=== PATIENT | female | born 1975 | race Two or more races ===

== ENCOUNTER 2023-08-07 10:21 | Outpatient (CLI) | payer MEDICAID ==
--- NOTE | 2023-08-07 11:22 | Sleep Patient Instructions ---
Sleep Center Visit Summary - Patient Visit Information Reason for Visit: Initial consult for evaluation of sleep disordered breathing and other sleep issues. - Patient Instructions Instructions Attached: Sleep Study, Sleep Study Home Monitor Additional Instructions: You will be completing a sleep study, either an in-lab polysomnography (PSG) or home sleep study (HST). You will follow-up in the sleep care office after the sleep study is completed to hear the results and talk about therapy, if needed. You will be called by our office staff to schedule this appointment, but you may contact us with any questions. - Clinic Information Contact: [facility] [address] [place] [id number] [email or web address] T: [phone]
--- NOTE | 2023-08-07 11:29 | SLEEP CARE CONSULTATION ---
Information from patient questionnaire entered by Clarissa Baxter. I have reviewed and concur with the information entered by Clarissa Baxter. This document represents the service I personally performed and the decisions made by me, Sherry Parra ARNP. History of Present Illness Service Date and Time: 08/07/2023 1021 Reason for Visit: New patient Chief Complaint: reports: Snoring, Observed pauses in breathing Date of Onset: 8+YRS Usual bedtime: 2300 Time it takes to fall asleep: MINS Snores at night: Yes Observed to quit breathing while asleep: Yes Sleeps alone due to snoring: No Number of times waking at night: 0 Reasons for waking at night: denies: Choking, Snoring, Gasping for air Toss, Turn, or Twitch while sleeping: Yes Recalls having dreams: No Usually gets out of bed at: 0700 Feels refreshed in the morning: No Morning headache: No Sleepy or fatigued during the day: Yes Ever fallen asleep while driving: No Takes day naps: No Prior sleep studies: No Additional HPI information: I had the pleasure of seeing BRANDON KOCH today regarding the possibility of her having a sleep disorder. Her current complaints are snoring and observed pauses in breathing. She said she did have a sleep study in [place] 2 years ago but never got results of that study. She feels like her brain is fuzzy all the time and she has a hard time retaining information. She does not wake up feeling rested in the morning. She usually does not take naps. - Parasomnia Symptoms Ever been unable to move upon waking from sleep: No Walks in sleep: No Talks in sleep: Yes (telling stories) Ever acted out dreams in sleep: No Ever felt weak in the knees when startled or emotional: Yes (has not fallen to ground) Bothered by creepy, crawly, restless sensations in legs: No Problems with memory or concentration: Yes (both) Subjective Initial [place] Sleepiness Scale score: 15 (07/16/23) Past Medical History Past Medical History: reports: Other (no significant medical history) Social History The patient's occupation is a [employer]. Patient is and lives in . Have you smoked in the past 12 months: No Alcohol use: No Caffeine use: Yes Caffeine amount and frequency: LARGE DIET COKE MORNINGS Family History Family history of sleep disordered breathing: No (UNKNOWN) Allergies and Home Medications Known drug allergies: No Drug allergies reviewed: Yes Home medication list reviewed: Yes (last OTC vitamins 2 weeks ago) Allergy and home medication list: Allergies No Known Drug Allergies Allergy (Verified 08/07/23 10:43) Home Medications No Known Home Medications 08/07/23 [History] Review of Systems Weight gain over past 5 years: 30 Weight loss over past 5 years: 30 Cardiovascular: denies: high blood pressure Gastrointestinal: denies: heartburn Neurological: denies: headaches Psychiatric: denies: anxiety, depression Ear/Nose/Throat: denies: tonsillectomy Endocrine: denies: thyroid disease Immunologic: denies: allergies to food or environment Physical Exam Vital signs obtained and entered by: CLARISSA Juarez MA Blood Pressure: 120/77 (LEFT ARM) Cuff size: regular Heart Rate: 74 O2 Saturation: 97 Height: 5 ft 5 in Weight: 204 lb 3.2 oz Body Mass Index: 34.0 BMI Classification: Obese Neck circumference: 14.5 Mouth and throat: narrow oropharynx Soft palate: long Hard palate: normal Uvula: normal Uvula visualization: 25% Mallampati Class III Tongue: normal in size Tonsils: 3+/kissing Neck: normal w/o lymphadenopathy or thyromegaly Heart: regular rate and rhythm Lungs: clear bilaterally Impression and Plan 1. Suspected Obstructive Sleep Apnea-Hypopnea Syndrome, as suggested by a history of loud and irregular snoring, observed cessation of breath while asleep, unrefreshed sleep, and excessive daytime sleepiness. Narrow oropharynx and obesity are common predisposing factors for obstructive sleep apnea-hypopnea syndrome. I recommend proceeding to polysomnography to confirm the diagnosis and to assess severity. If the patient has significant sleep disordered breathing, a manual CPAP titration study will also be performed to find the optimal treatment pressure. I informed the patient of what the sleep studies involve and after some discussion, obtained agreement to proceed. The pathophysiology of obstructive sleep apnea-hypopnea syndrome was discussed with the patient and health risks of cardiovascular and cerebrovascular disease if not treated. 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 Patient agreed to plan. * Schedule polysomnography. * Avoid long distance driving or driving when feeling sleepy. * Avoid alcohol, sedative and muscle relaxant around bedtime. * Attempt to lose weight. * Review instructions provided by trained office staff on how to prepare for the sleep study. * Return for follow-up after sleep study completed. Counseling Topics: Weight loss health impact Plan: PSG/HST and followup Visit Type: In Office Time Spent with Patient (minutes): 30 Provider Statement: I spent 100% of the Face to Face Visit with the patient with greater than 50% spent counseling the patient and coordination of care.
[2023-08-07 11:37] VITALS: BP 120/77; O2SAT 97
== END 2023-08-07 10:22 | disposition home or self-care (01) ==
LOC: SC 10:21
PROVIDERS: ATTEND Nurse Practitioner Family
DX: G47.10 Hypersomnia, unspecified (principal); R06.81 Apnea, not elsewhere classified; R06.83 Snoring; G47.8 Other sleep disorders; E66.9 Obesity, unspecified; Z68.34 Body mass index [BMI] 34.0-34.9, adult
CPT/HCPCS: 99203; 99212

== ENCOUNTER 2023-08-07 11:34 | Outpatient (CLI) | payer MEDICAID ==
[2023-08-07 17:50] LABS: BASOPHILS # (AUTO) 0.1 10^3/uL (0.0-0.1); EOSINOPHILS # (AUTO) 0.1 10^3/uL (0.0-0.7); EOSINOPHILS % (AUTO) 1.7 %; HCT - HEMATOCRIT 43.7 % (37.0-47.0); HGB - HEMOGLOBIN 13.5 g/dL (12.0-16.0); LYMPHOCYTES # (AUTO) 2.3 10^3/uL (1.5-3.5); LYMPHOCYTES % (AUTO) 45.2 %; MEAN CORPUSCULAR HEMOGLOBIN 29.2 pg (27.0-31.0); MEAN CORPUSCULAR HGB CONC 30.9 g/dL (32.0-36.0); MEAN CORPUSCULAR VOLUME 94.6 fL (81.0-99.0); MEAN PLATELET VOLUME 11.2 fL (7.9-10.8); MONOCYTES # (AUTO) 0.3 10^3/uL (0.0-1.0); MONOCYTES % (AUTO) 6.6 %; NEUTROPHILS # (AUTO) 2.3 10^3/uL (1.5-6.6); NEUTROPHILS % (AUTO) 45.3 %; PLT - PLATELET COUNT 273 10^3/uL (130-450); RED BLOOD COUNT 4.62 10^6/uL (4.20-5.40); RED CELL DISTRIBUTION WIDTH 12.4 % (12.0-15.0); WHITE BLOOD COUNT 5.2 x10^3/uL (4.8-10.8)
[2023-08-07 18:13] LABS: ALBUMIN 4.6 g/dL (3.2-5.5); ALBUMIN/GLOBULIN RATIO 1.5 (1.0-2.2); ALKALINE PHOSPHATASE 67 IU/L (42-121); ALT ALANINE AMINOTRANSFERASE 18 IU/L (10-60); AST ASPARTATE AMINOTRANSFERASE 18 IU/L (10-42); BILIRUBIN,TOTAL 0.6 mg/dL (0.2-1.0); BUN - BLOOD UREA NITROGEN 9 mg/dL (6-20); CALCIUM 10.2 mg/dL (8.5-10.3); CARBON DIOXIDE - CO2 31 mmol/L (21-32); CHLORIDE 106 mmol/L (101-111); CHOLESTEROL 226 mg/dL; CREATININE 0.7 mg/dL (0.6-1.3); GFR - MDRD 89 (>89); GLUCOSE 87 mg/dL (74-104); HDL CHOLESTEROL 76 mg/dL; LDL CHOLESTEROL,CALCULATED 131 mg/dL; LDL/HDL RATIO 1.7 (<4.4); POTASSIUM 4.8 mmol/L (3.5-4.5); SODIUM 141 mmol/L (135-145); TOTAL PROTEIN 7.7 g/dL (6.4-8.9); TRIGLYCERIDES 94 mg/dL (48-352); VLDL CHOLESTEROL 19 mg/dL
[2023-08-07 18:23] LABS: THYROID STIMULATING HORMONE 2.17 uIU/mL (0.34-5.60)
[2023-08-07 21:09] LABS: ESTIMATED AVERAGE GLUCOSE 111 mg/dL (70-100); HEMOGLOBIN A1c% 5.5 % (4.27-6.07)
== END 2023-08-07 11:35 | disposition home or self-care (01) ==
LOC: LAB.N 11:34
PROVIDERS: ATTEND Nurse Practitioner Family
DX: Z00.00 Encounter for general adult medical examination without abnormal findings (principal); E66.9 Obesity, unspecified; R53.83 Other fatigue
CPT/HCPCS: 36415; 80053; 80061; 83036; 83721; 84443; 85025

== ENCOUNTER 2023-09-08 13:42 | Outpatient (CLI) | payer MEDICAID | END 2023-09-08 13:43 | disposition home or self-care (01) | LOC: SC 13:42 | PROVIDERS: ATTEND Nurse Practitioner Family | DX: G47.33 Obstructive sleep apnea (adult) (pediatric) (principal); R09.02 Hypoxemia | CPT/HCPCS: 95806 ==

== ENCOUNTER 2023-10-02 13:31 | Outpatient (CLI) | payer MEDICAID ==
--- NOTE | 2023-10-02 14:01 | Sleep Patient Instructions ---
Sleep Center Visit Summary - Patient Visit Information Reason for Visit: Sleep study follow-up - Patient Instructions Additional Instructions: You are being started on CPAP therapy. You will be completing a titration sleep study in our sleep lab where you will be sleeping with the CPAP machine on and we will be adjusting your pressures to find your optimal pressure settings. Once we have your results back, we will call you and schedule a follow up to go over the results, you may contact us with any questions or issues as needed. - Clinic Information Contact: [facility] [address] [place] [id number] [email or web address] T: [phone]
--- NOTE | 2023-10-02 14:06 | SLEEP CARE CONSULTATION ---
Information from patient questionnaire entered by Swathi Baxter. I have reviewed and concur with the information entered by Swathi Baxter. This document represents the service I personally performed and the decisions made by , Sherry Parra ARNP. History of Present Illness Service Date and Time: 10/02/2023 1331 Initial [place] Sleepiness Scale score: 15 (07/16/23) Current [place] Sleepiness Scale score: 6 (10/02/23) Additional HPI information: BRANDON KOCH returns for follow up and results of the recently performed home sleep study. I explained the pathophysiology behind obstructive sleep apnea. We then spent quite a bit of time discussing different treatment options. For mild obstructive sleep apnea, surgery and oral appliance are alternatives to nasal CPAP therapy but in moderate or severe cases, nasal CPAP is the most effective and reliable treatment. I reviewed the impact of weight changes on sleep apnea and strongly recommended losing weight. After some discussion, the patient opted to go with the nasal CPAP therapy. A manual titration study will be ordered to find optimal pressure with office adjustments. Patient does not drink alcohol. Patient was cautioned about risks of drowsy driving until sleepiness symptoms resolve. Patient denies drowsy driving. Sleep Study - Results Type of Sleep Study: Home sleep study (COMPLETED 09/08/23) Prior sleep studies: No Polysomnography/Home Sleep Study results: Physician Impression: The quality of the study is good. The length of the study is adequate (> 240 minutes). Please also see the tabulated and graphic data. 1. Obstructive Sleep Apnea-Hypopnea (ICD-10 G47.33), very severe, with an AHI of 62.4/hr and claudia SaO2 of 60%. During the study, the patient had 482 apneas (482 obstructive, 0 central, 0 mixed) and 83 hypopneas. The longest episode lasted 113.0 seconds. The respiratory events occurred slightly more frequently during supine sleep (supine AHI was 63.7 and non-supine, 38.57). 2. Hypoxemia (ICD-10 R09.02), moderate, with the lowest oxygen saturation of 60 % and 206.8 minutes with SaO2 under 90%. Baseline oxygen saturation was also low (Average oxygen saturation was 89%). Allergies and Home Medications Known drug allergies: No Drug allergies reviewed: Yes Home medication list reviewed: Yes (no changes) Allergy and home medication list: Allergies No Known Drug Allergies Allergy (Verified 09/30/23 09:28) Review of Systems Review of systems same as previous: Yes (NO CHANGE) Physical Exam Vital signs obtained and entered by: SWATHI Juarez MA Blood Pressure: 121/89 (LEFT ARM) Cuff size: long Heart Rate: 75 O2 Saturation: 100 Height: 5 ft 5 in Weight: 213 lb 6.4 oz Body Mass Index: 35.5 BMI Classification: Obese Impression and Plan 1. Obstructive Sleep Apnea-Hypopnea Syndrome, very severe, with lowest oxygen saturation of 60%. Obviously this is the cause of the patients symptoms of unrefreshed sleep, and excessive daytime sleepiness. As mentioned above, the patient will be started on nasal autoCPAP therapy. A manual titration study will be completed to find optimal treatment pressure with office adjustments. Compliance guidelines also reviewed. Because the apnea is more severe supine, I instructed to avoid sleeping supine using pillow positioning until able to start CPAP use. 2. Hypoxemia, moderate, with a claudia oxygen saturation of 60% and 206.8 minutes spent under 90%. The baseline oxygen saturation was low normal with an average oxygen saturation of 89%. 3. Obesity, unspecified. Currently patients BMI is 35.5. Obesity increases the risk of apnea, CPAP pressure requirements and overall health risks especially cardiovascular and diabetes. Thus patient is advised to lose weight. * Titration study * Attempt to lose weight. * Avoid supine sleep until using CPAP. * The patient is again cautioned about driving until sleepiness completely resolves. * Return after titration study to review results and initiate therapy. Counseling Topics: Weight loss health impact Plan: Titration study and follow up Visit Type: In Office Time Spent with Patient (minutes): 20 Provider Statement: I spent 100% of the Face to Face Visit with the patient with greater than 50% spent counseling the patient and coordination of care.
[2023-10-02 14:21] VITALS: BP 121/89; O2SAT 100
== END 2023-10-02 13:32 | disposition home or self-care (01) ==
LOC: SC 13:31
PROVIDERS: ATTEND Nurse Practitioner Family
DX: G47.33 Obstructive sleep apnea (adult) (pediatric) (principal); R09.02 Hypoxemia; Z68.35 Body mass index [BMI] 35.0-35.9, adult
CPT/HCPCS: 99212; 99213

== ENCOUNTER 2023-10-26 19:32 | Outpatient (CLI) | payer MEDICAID | END 2023-10-26 19:33 | disposition home or self-care (01) | LOC: SC 19:32 | PROVIDERS: ATTEND Nurse Practitioner Family | DX: G47.33 Obstructive sleep apnea (adult) (pediatric) (principal) | CPT/HCPCS: 95811 ==

== ENCOUNTER 2023-11-08 15:00 | Outpatient (CLI) | payer MEDICAID ==
--- NOTE | 2023-11-09 09:48 | Ultrasound Report ---
PROCEDURE: Carotid Doppler Complete INDICATIONS: CAROTID BRUIT TECHNIQUE: Color and pulse Doppler interrogation was performed of both carotid systems, with image documentation and velocity measurements. COMPARISON: None. FINDINGS: Right side: Brachial blood pressure: 112/74 mm Hg. Common carotid artery peak systolic velocity: 66 cm/sec. Internal carotid artery peak systolic velocity: 76 cm/sec. Internal carotid artery end diastolic velocity: 47 cm/sec. External carotid artery peak systolic velocity: 94 cm/sec. ICA/CCA peak systolic ratio: 1.15 . Bang scale imaging description: No significant atherosclerotic plaque. Percent internal carotid artery stenosis: No hemodynamically significant stenosis. Vertebral artery: Flow direction is antegrade. Left side: Brachial blood pressure: 104/71 mm Hg. Common carotid artery peak systolic velocity: 80 cm/sec. Internal carotid artery peak systolic velocity: 77 cm/sec. Internal carotid artery end diastolic velocity: 42 cm/sec. External carotid artery peak systolic velocity: 116 cm/sec. ICA/CCA peak systolic ratio: 0.9 . Bang scale imaging description: No significant atherosclerotic plaque. Percent internal carotid artery stenosis: No hemodynamically significant stenosis. Vertebral artery: Flow direction is antegrade. IMPRESSION: 1. In the right internal carotid artery, there is no hemodynamically significant stenosis based on pe ak systolic velocity criteria. 2. In the left internal carotid artery, there is no hemodynamically significant stenosis based on pea k systolic velocity criteria. 3. Antegrade blood flow within the right vertebral artery. 4. Antegrade blood flow within the left vertebral artery. The estimate of stenosis included in the report of the imaging study was calculated using the [facility]-end orsed standards of carotid artery stenosis. Reviewed by: Chucky Silva MD on 11/09/2023 9:47 AM PDT Approved by: Chucky Silva MD on 11/09/2023 9:47 AM PDT Station ID: [id number]
== END 2023-11-08 15:01 | disposition home or self-care (01) ==
LOC: DI 15:00
PROVIDERS: ATTEND Nurse Practitioner Family
DX: R09.89 Other specified symptoms and signs involving the circulatory and respiratory systems (principal)
CPT/HCPCS: 93880

== ENCOUNTER 2023-11-27 09:49 | Outpatient (CLI) | payer MEDICAID ==
--- NOTE | 2023-11-27 10:11 | Sleep Patient Instructions ---
Sleep Center Visit Summary - Patient Visit Information Reason for Visit: Titration study follow-up - Patient Instructions Instructions Attached: CPAP Additional Instructions: You are being started on CPAP therapy with pressure setting at 5-10 cmH2O. You will need to call the sleep care office to set up your follow up once you have your CPAP machine to check compliance and response to therapy at that time. You may call the office with any concerns about pressure feeling too low or too much for adjustment, if needed. You should contact DME supplier for any questions or concerns about mask or equipment. Please call office to schedule a follow up appointment in the sleep care office one month after obtaining new device. - Clinic Information Contact: [facility] [address] [place] [address] [email or web address] T: [phone]
--- NOTE | 2023-11-27 10:13 | SLEEP CARE CONSULTATION ---
Information from patient questionnaire entered by Clarissa Baxter. I have reviewed and concur with the information entered by Clarissa Baxter. This document represents the service I personally performed and the decisions made by , Sherry Parra ARNP. History of Present Illness Service Date and Time: 11/27/2023 0949 Initial [place] Sleepiness Scale score: 15 (07/16/23) Current [place] Sleepiness Scale score: 11 (11/27/23) Additional HPI information: BRANDON KOCH returns for follow up of a manual CPAP titration study performed on 10/26/2023. Previous study done on 09/08/2023 showed very severe obstructive sleep apnea with AHI 62.4. The patient was informed of the following polysomnography findings: CPAP was initiated at 6 cmH2O and titrated up to CPAP at 8 cmH2O. CPAP at 8 cmH2O appeared to be optimal (AHI of 0 per hour on the pressure). There was supine REM sleep on the pressure. Oxygen saturation was minimally low. Lower CPAP settings appeared adequate as well. The patient appeared to have tolerated positive airway pressure therapy fairly well. CPAP therapy is, therefore, recommended at the pressure setting. AutoCPAP set between 5-10 cmH20 is also appropriate. I explained how CPAP machine works and what to expect when using the machine. Using CPAP every night in order to get used to it was emphasized. Patient advised to put CPAP mask on before getting into bed so as not to fall asleep without CPAP. To assist acclimation to CPAP use, it could also be used for a short time during day while reading or watching TV. The patient was instructed to call the CPAP supplier to discuss any mechanical problem that may occur. If the mask given is uncomfortable or is difficult to keep on through the night even with adjustment, contact the CPAP supplier as many will replace with another mask style if notified before 30 days. If snoring or perceives is not getting enough air or too much air from the machine, notify this office. Patient does not drink alcohol. Patient was cautioned about risks of drowsy driving until sleepiness symptoms resolve. Patient denies drowsy driving. Sleep Study - Results Type of Sleep Study: Home sleep study (COMPLETED 09/08/23 TITRATION STUDY 10/26/23) Prior sleep studies: No Polysomnography/Home Sleep Study results: IMPRESSION: The quality of the study is good. CPAP was initiated at 6 cmH2O and titrated up to CPAP at 8 cmH2O. CPAP at 8 cmH2O appeared to be optimal (AHI of 0 per hour on the pressure). There was supine REM sleep on the pressure. Oxygen saturation was minimally low. Lower CPAP settings appeared adequate as well. The patient appeared to have tolerated positive airway pressure therapy fairly well. The patients sleep efficiency was minimally reduced. The sleep architecture was normal. There was no periodic leg movement of sleep. Cardiac rhythm was normal sinus rhythm without significant arrhythmia. No abnormal behavior (parasomnia) observed during the night. CONCLUSIONS and RECOMMENDATIONS: 1. Obstructive sleep apnea-hypopnea (ICD-10 G47.33), very severe (AHI was 62.4), adequately controlled with CPAP at 8 cmH2O. CPAP therapy is, therefore, recommended at the pressure setting. AutoCPAP set between 5 and 10 cmH20 is also appropriate. Mask used was a [employer] DreamWear [id number] nasal cushion mask size S-M. With BMI of 35.4 Kg/M2 , weight loss is also recommended. Allergies and Home Medications Known drug allergies: No Drug allergies reviewed: Yes Home medication list reviewed: Yes (no changes) Allergy and home medication list: Allergies No Known Drug Allergies Allergy (Verified 11/27/23 09:52) Review of Systems Review of systems same as previous: Yes (no changes) Physical Exam Vital signs obtained and entered by: CLARISSA Juarez MA Blood Pressure: 115/86 (LEFT ARM) Cuff size: regular Heart Rate: 85 O2 Saturation: 98 Height: 5 ft 5 in Weight: 216 lb 9.6 oz Body Mass Index: 36.0 BMI Classification: Obese Impression and Plan 1. Obstructive Sleep Apnea-Hypopnea Syndrome, very severe. Patient is here for follow-up of her titration study to be set up on CPAP therapy. The patient will be started on nasal autoCPAP therapy with pressure set at 5-10 cmH2O. Compliance guidelines also reviewed. A copy of compliance guidelines will be given for reference at check out. She was advised to call once she has her machine to schedule to follow-up. She is to contact the office if the pressure is uncomfortable. She may reach out to her DME supplier if she has any issues with the mask or supplies. 2. Obesity, unspecified. Currently patients BMI is 36. Obesity increases the risk of apnea, CPAP pressure requirements and overall health risks especially cardiovascular and diabetes. Thus patient is advised to lose weight. * Nasal auto CPAP therapy, pressure at 5-10 cm H2O. * Attempt to lose weight. * Avoid alcohol consumption near bedtime. * Avoid supine sleep until using CPAP. * The patient is again cautioned about driving until sleepiness completely resolves. * Return one month after CPAP obtained. I will assess response to therapy and compliance at that time. Counseling Topics: Weight loss health impact Prescriptions: Auto CPAP Follow up with Sleep Care in: other (compliance followup) Visit Type: In Office Time Spent with Patient (minutes): 20 Provider Statement: I spent 100% of the Face to Face Visit with the patient with greater than 50% spent counseling the patient and coordination of care.
[2023-11-27 10:23] VITALS: BP 115/86; O2SAT 98
== END 2023-11-27 09:50 | disposition home or self-care (01) ==
LOC: SC 09:49
PROVIDERS: ATTEND Nurse Practitioner Family
DX: G47.33 Obstructive sleep apnea (adult) (pediatric) (principal); E66.9 Obesity, unspecified; Z68.36 Body mass index [BMI] 36.0-36.9, adult
CPT/HCPCS: 99212; 99213